=== PATIENT | male | born 1995 | race Caucasian/White ===

== ENCOUNTER 2020-08-01 17:21 | Emergency (ER) | payer BC, SELFPAY ==
[2020-08-01 17:31] VITALS: BP 129/99; PULSE 79; RESP 18; TEMP 37.1; O2SAT 100
--- NOTE | 2020-08-01 17:40 | ED.GENADULT ---
HPI - General Adult General Chief complaint: Unspecified Stated complaint: exposure to std Source: patient Mode of arrival: ambulatory Limitations: no limitations History of Present Illness HPI narrative: Patient is a 25-year-old male who presents complaining of exposure to chlamydia. Patient reports exposure approximately 2 weeks ago, he reports just finding out today. He denies symptoms at this time. Requesting STD testing and treatment at this time. He denies any significant medical or surgical history. Related Data Home Medications Medication Instructions Recorded Confirmed No Home Medications 08/01/20 08/01/20 Allergies Allergy/AdvReac Type Severity Reaction Status Date / Time No Known Allergies Allergy Verified 08/01/20 17:38 Review of Systems Review of Systems: Narrative: CONSTITUTIONAL: Denies fever, chills, or sweats. EYES: Denies visual changes, redness, or discharge. ENT: Denies rhinorrhea, congestion, sore throat, or otalgia. CARDIOVASCULAR: Denies chest pain, palpitations, or edema. RESPIRATORY: Denies cough or dyspnea. GASTROINTESTINAL: Denies abdominal pain, nausea, vomiting, or diarrhea. GENITOURINARY: Reports exposure to STD SKIN: Denies rash or itching. MUSCULOSKELETAL: Denies back pain, joint pain, or myalgia. NEUROLOGIC: Denies headache, numbness, dizziness, or weakness. PSYCHIATRIC: Denies anxiety or depression. [facility] Past Medical History Medical History No significant family history No significant past medical history Surgical History Surgical History No significant past surgical history Social History Social History (Updated 08/01/20 @ 17:42 by JACQUI Grande) Smoking status: Never smoker Alcohol intake: current Alcohol use details: Occasional Substance use: never Exam Narrative: Exam Narrative: GENERAL: Well-appearing, well-nourished, and in no acute distress. HEAD: Normocephalic, atraumatic. EYES: No redness or drainage. ENT: Mucous membranes pink and moist. CHEST: No respiratory distress. EXTREMITIES: Normal range of motion. SKIN: Warm, dry, no rash. NEURO: No focal deficits. Alert and oriented x3. Gait steady. PSYCH: Normal affect. No signs of depression or anxiety. Course Vital Signs Vital signs: Vital Signs Temperature 37.1 C 08/01/20 17:31 Pulse Rate 79 08/01/20 17:31 Respiratory Rate 18 08/01/20 17:31 Blood Pressure 129/99 H 08/01/20 17:31 Pulse Oximetry 100 08/01/20 17:31 Temperature 37.1 C 08/01/20 17:31 Pulse Rate 79 08/01/20 17:31 Respiratory Rate 18 08/01/20 17:31 Blood Pressure 129/99 H 08/01/20 17:31 Pulse Oximetry 100 08/01/20 17:31 Reviewed. Patient has been instructed to follow-up with his PCP regarding his blood pressure. Medical Decision Making MDM Narrative Medical decision making narrative: Discussed with patient treatment options. Patient requests only to be treated for chlamydia at this time. Agrees to having testing for gonorrhea and trichomonas as well as chlamydia to be sent off. Patient aware that if he would test positive for wanting to refuse he may need to return for medication or a prescription could be called in. Patient is aware. Patient instructed on unprotected sex after treatment. Patient is stable for discharge home with outpatient follow-up as needed. Differential Diagnosis Differential Diagnosis: Chlamydia, gonorrhea, trichomonas, UTI Vital Signs Vital Signs: Vital Signs Temperature 37.1 C 08/01/20 17:31 Pulse Rate 79 08/01/20 17:31 Respiratory Rate 18 08/01/20 17:31 Blood Pressure 129/99 H 08/01/20 17:31 Pulse Oximetry 100 08/01/20 17:31 Temperature 37.1 C 08/01/20 17:31 Pulse Rate 79 08/01/20 17:31 Respiratory Rate 18 08/01/20 17:31 Blood Pressure 129/99 H 08/01/20 17:31 Pulse Oximetry 100 08/01/20 17:31
[2020-08-01] MEDS: AZITHROMYCIN 250 MG TABLET 1000 MG PO (17:43)
--- NOTE | 2020-08-01 17:45 | PC.NURSE ---
Patient reports exposure to chlamydia, denies any urinary symptoms, no discharge, denies any pain.
== END 2020-08-01 17:57 | disposition home or self-care (01) ==
PROVIDERS: Emergency Provider Nurse Practitioner
DX: Z20.2 Contact with and (suspected) exposure to infections with a predominantly sexual mode of transmission (principal)
CPT/HCPCS: 81003; 87491; 87591; 99213; A9270; G0463